=== PATIENT | female | born 1940 | race Caucasian/White ===

== ENCOUNTER 2017-07-24 18:01 | Inpatient (IN) | payer MEDICARE, MEDICAID ==
[~2017-07-24] VITALS: Ht 160 cm; Wt 57.0 kg
[2017-07-24 18:35] LABS: BASOPHILS % (AUTO) 0.3 % (0-1); EOSINOPHILS # (AUTO) 0.1 X10'3 (0-0.9); EOSINOPHILS % (AUTO) 2.4 % (0-6); HEMATOCRIT 33.1 % (35.0-45.0); HEMOGLOBIN 11.2 g/dl (12.0-16.0); LYMPHOCYTES # (AUTO) 1.3 X10'3 (1.1-4.8); LYMPHOCYTES % (AUTO) 20.3 % (21-51); MEAN CORPUSCULAR HEMOGLOBIN 30.5 PG (27.0-31.0); MEAN CORPUSCULAR HGB CONC 33.8 % (33.0-36.5); MEAN CORPUSCULAR VOLUME 90.2 FL (78-98); MEAN PLATELET VOLUME 6.8 FL (7.4-10.4); MONOCYTES # (AUTO) 0.8 X10'3 (0-0.9); MONOCYTES % (AUTO) 12.4 % (2-12); NEUTROPHILS % (AUTO) 64.6 % (42-75); PLATELET COUNT 265 X10'3 (140-440); RED BLOOD COUNT 3.68 X10'6 (4.20-5.60); RED CELL DISTRIBUTION WIDTH 14.1 % (11.5-14.5); WHITE BLOOD COUNT 6.2 X10'3 (4.5-11.0)
[2017-07-24 18:56] LABS: ALANINE AMINOTRANSFERASE 16 U/L (12-78); ALBUMIN 3.2 G/DL (3.4-5.0); ALBUMIN/GLOBULIN RATIO 0.6 (1.1-1.5); ALKALINE PHOSPHATASE 85 IU/L (46-116); ANION GAP 5 (8-16); ASPARTATE AMINO TRANSFERASE 19 U/L (10-37); BILIRUBIN,TOTAL 0.4 MG/DL (0.1-1.0); BLOOD UREA NITROGEN 35 MG/DL (7-18); CALCIUM 9.3 MG/DL (8.5-10.1); CHLORIDE 96 MMOL/L (99-107); CREATININE 1.03 MG/DL (0.40-0.90); GLUCOSE 105 MG/DL (70-104); PARTIAL THROMBOPLASTIN TIME 26 SECONDS (22-32); POTASSIUM 4.3 MMOL/L (3.5-5.1); PROTHROMBIN TIME 10.1 SECONDS (9.0-12.0); SODIUM 134 MMOL/L (135-145); TOTAL PROTEIN 8.5 G/DL (6.4-8.2); eGFR 52 ML/MIN
[2017-07-24] MEDS ORDERED: morphine 4 MG/ML inj SYRINge IV ONE (19:50)
[2017-07-24] MEDS ORDERED: ondansetron/PF 4mg/2ml inj IV ONE (19:50)
[2017-07-24] MEDS ORDERED: aspirin 81mg tab.chew PO ONE (20:00)
[2017-07-24] MEDS ORDERED: nitroGLYCERIN 0.4mg SUBLingual tab SL PRN (20:05)
[2017-07-24] MEDS ORDERED: ipratropium/albuterol 3ml nebule NEB ONE (20:05)
[2017-07-25] VITALS (14 sets, daily range): BP systolic 103–138; BP diastolic 45–85
[2017-07-25] MEDS ORDERED: methylPREDNISolone sod succ 125mg/2ml vial IV ONE (00:20)
[2017-07-25] MEDS ORDERED: magnesium 4gm in 100ml NS 100 ML IV PRN (01:15)
[2017-07-25] MEDS ORDERED: magnesium 2GM in 50ml NS 50 ML IV PRN (01:15)
[2017-07-25] MEDS ORDERED: aminophylline 250mg/10ml inj. IV PRN (01:15)
[2017-07-25] MEDS ORDERED: potassium Cl 20 mEq SR tablet PO PRN ×2 (01:15)
[2017-07-25] MEDS ORDERED: metoprolol tartrate 1mg/ml inj IV PRN (01:15)
[2017-07-25] MEDS ORDERED: nitroGLYCERIN 0.4mg SUBLingual tab SL PRN (01:15)
[2017-07-25] MEDS ORDERED: ondansetron/PF 4mg/2ml inj IV PRN (01:15)
[2017-07-25] MEDS ORDERED: morphine 4 MG/ML inj SYRINge IV PRN ×2 (01:15)
[2017-07-25] MEDS ORDERED: acetaminophen 325mg tablet PO PRN (01:15)
[2017-07-25] MEDS ORDERED: magnesium hydroxide 30ml (MOM) UD suspension PO PRN (01:15)
[2017-07-25] MEDS ORDERED: regadenoson 0.4mg/5ml syringe IV ONE ×3 (01:15→12:00)
[2017-07-25] MEDS ORDERED: magnesium Cl slow-release 64mg tablet PO PRN (01:15)
[2017-07-25] MEDS ORDERED: mag hydrox/Alum hydrox/simeth 30ml oral suspension PO PRN (01:15)
[2017-07-25] MEDS ORDERED: potassium Cl 40MEQ/NS 500ml 500 ML IV PRN ×2 (01:15)
[2017-07-25] MEDS ORDERED: temazepam 15mg capsule PO PRN (01:36)
[2017-07-25] MEDS ORDERED: normal saline 1000ml 1,000 ML IV SCH (01:38)
[2017-07-25] MEDS ORDERED: LORA0.5T (02:07)
[2017-07-25] MEDS ORDERED: CITA40TA17 (02:07)
[2017-07-25] MEDS ORDERED: ZOLP10TA5 (02:07)
[2017-07-25] MEDS ORDERED: FLUT1BLS3 (02:07)
[2017-07-25] MEDS ORDERED: TIOT18CA3 ×2 (02:07→11:28)
[2017-07-25] MEDS ORDERED: TRAZ-143 (02:07)
[2017-07-25] MEDS ORDERED: PRAV10TA39 (02:07)
[2017-07-25] MEDS: levoFLOXACIN-Levaquin 500mg/D5 100 ML IV SCH ×2 (02:21→21:34)
[2017-07-25] MEDS: enoxaparin 60mg/0.6ml syringe SUBCUT SCH ×2 (03:34→20:05)
[2017-07-25] MEDS: K and/or MAG REPLACEMENT MC SCH (08:00)
[2017-07-25] MEDS ORDERED: LORA0.5T PO ×2 (11:22→11:31)
[2017-07-25] MEDS ORDERED: aminophylline inj. 10 ML IV ONE (11:25)
[2017-07-25] MEDS ORDERED: FLUT1DIS4 INH (11:28)
[2017-07-25] MEDS ORDERED: CITA20TA11 PO (11:28)
[2017-07-25] MEDS ORDERED: OMEP40CA37 PO (11:28)
[2017-07-25] MEDS ORDERED: ALB0.5UD IH (11:31)
[2017-07-25] MEDS ORDERED: SIMV20TA5 PO (11:31)
[2017-07-25] MEDS ORDERED: ZOLP5TAB8 PO (11:31)
[2017-07-25] MEDS: LORazepam 1 MG tablet PO PRN ×2 (11:51→20:05)
[2017-07-25] MEDS ORDERED: albuterol 2.5 MG/3 ML nebule NEB PRN (13:15)
[2017-07-25] MEDS ORDERED: zolpidem 5mg tablet PO PRN (13:15)
[2017-07-25] MEDS ORDERED: LORazepam 0.5 MG tablet PO PRN (13:15)
[2017-07-25 14:21] LABS: BASOPHILS % (AUTO) 0.2 % (0-1); EOSINOPHILS % (AUTO) 0.9 % (0-6); HEMOGLOBIN 11.4 g/dl (12.0-16.0); LYMPHOCYTES # (AUTO) 0.7 X10'3 (1.1-4.8); LYMPHOCYTES % (AUTO) 14.6 % (21-51); MEAN CORPUSCULAR HEMOGLOBIN 30.4 PG (27.0-31.0); MEAN CORPUSCULAR HGB CONC 33.5 % (33.0-36.5); MEAN CORPUSCULAR VOLUME 90.7 FL (78-98); MEAN PLATELET VOLUME 7.9 FL (7.4-10.4); MONOCYTES # (AUTO) 0.1 X10'3 (0-0.9); MONOCYTES % (AUTO) 1.6 % (2-12); NEUTROPHILS # (AUTO) 4.1 X10'3 (1.8-7.7); NEUTROPHILS % (AUTO) 82.7 % (42-75); PLATELET COUNT 279 X10'3 (140-440); RED BLOOD COUNT 3.74 X10'6 (4.20-5.60); RED CELL DISTRIBUTION WIDTH 14.9 % (11.5-14.5)
[2017-07-25 14:54] LABS: ALANINE AMINOTRANSFERASE 21 U/L (12-78); ALBUMIN 3.4 G/DL (3.4-5.0); ALBUMIN/GLOBULIN RATIO 0.6 (1.1-1.5); ALKALINE PHOSPHATASE 87 IU/L (46-116); ANION GAP 10 (8-16); ASPARTATE AMINO TRANSFERASE 34 U/L (10-37); BILIRUBIN,TOTAL 0.5 MG/DL (0.1-1.0); BLOOD UREA NITROGEN 43 MG/DL (7-18); BUN/CREATININE RATIO 32.6 (6.6-38.0); CALCIUM 9.1 MG/DL (8.5-10.1); CHLORIDE 96 MMOL/L (99-107); CREATININE 1.32 MG/DL (0.40-0.90); POTASSIUM 4.6 MMOL/L (3.5-5.1); SODIUM 134 MMOL/L (135-145); TOTAL CARBON DIOXIDE 27.7 MMOL/L (24-32); TOTAL PROTEIN 9.1 G/DL (6.4-8.2); eGFR 39 ML/MIN
[2017-07-25 14:55] LABS: GLUCOSE 134 MG/DL (70-104)
[2017-07-25] MEDS ORDERED: fluticasone/vilanterol 200mcg/25mcg inhaler IH SCH (20:00)
[2017-07-26 03:00] VITALS: BP 129/48
[2017-07-26 06:08] LABS: ALBUMIN 3.2 G/DL (3.4-5.0); ALBUMIN/GLOBULIN RATIO 0.6 (1.1-1.5); ANION GAP 7 (8-16); ASPARTATE AMINO TRANSFERASE 60 U/L (10-37); BILIRUBIN,TOTAL 0.5 MG/DL (0.1-1.0); BLOOD UREA NITROGEN 42 MG/DL (7-18); BUN/CREATININE RATIO 35.6 (6.6-38.0); CALCIUM 8.8 MG/DL (8.5-10.1); CHLORIDE 99 MMOL/L (99-107); CREATININE 1.18 MG/DL (0.40-0.90); GLUCOSE 107 MG/DL (70-104); MAGNESIUM 1.8 MG/DL (1.5-2.4); POTASSIUM 4.1 MMOL/L (3.5-5.1); SODIUM 136 MMOL/L (135-145); TOTAL CARBON DIOXIDE 29.8 MMOL/L (24-32); TOTAL PROTEIN 8.3 G/DL (6.4-8.2); eGFR 45 ML/MIN
[2017-07-26 06:09] LABS: ALANINE AMINOTRANSFERASE 27 U/L (12-78); ALKALINE PHOSPHATASE 77 IU/L (46-116); CHOLESTEROL 228 MG/DL (0-200); HDL CHOLESTEROL 57 MG/DL (35-60); LDL CHOLESTEROL 152 MG/DL (50-100); TRIGLYCERIDES 99 MG/DL (20-135)
[2017-07-26 07:00] VITALS: BP 104/51
[2017-07-26] MEDS: enoxaparin 60mg/0.6ml syringe SUBCUT SCH (07:54)
[2017-07-26] MEDS ORDERED: atorvastatin 10mg tablet PO SCH (08:00)
[2017-07-26] MEDS ORDERED: citalopram 20mg tablet PO SCH (08:00)
[2017-07-26] MEDS ORDERED: pantoprazole 40mg Tablet.DR PO SCH (08:00)
[2017-07-26] MEDS ORDERED: predniSONE 20 mg tablet PO SCH (08:00)
[2017-07-26] MEDS: K and/or MAG REPLACEMENT MC SCH (08:00)
[2017-07-26 11:00] VITALS: BP 124/48
[2017-07-26] MEDS ORDERED: ACYC-202 PO (11:27)
[2017-07-26] MEDS ORDERED: METH4TAB81 PO (11:27)
[2017-07-26] MEDS ORDERED: LEVO500T2 PO (11:27)
== END 2017-07-26 12:45 | disposition home or self-care (01) | DRG 189 ==
LOC: ER 18:01 → ED HOLD 07-25 01:12 → PCU 3S 07-25 08:20
PROVIDERS: ADMIT Internal Medicine; ATTEND Internal Medicine
PROC: 4A02XM4 Measurement of Cardiac Total Activity, External Approach (ICD-10-PCS; principal; 2017-07-25)
PROC: 3E033HZ Introduction of Radioactive Substance into Peripheral Vein, Percutaneous Approach (ICD-10-PCS; 2017-07-25)
DX: J96.91 Respiratory failure, unspecified with hypoxia (principal); I50.22 Chronic systolic (congestive) heart failure; E87.1 Hypo-osmolality and hyponatremia; Z99.81 Dependence on supplemental oxygen; J44.1 Chronic obstructive pulmonary disease with (acute) exacerbation; R07.89 Other chest pain; D64.9 Anemia, unspecified; E86.0 Dehydration; N28.9 Disorder of kidney and ureter, unspecified; M19.90 Unspecified osteoarthritis, unspecified site; Z90.710 Acquired absence of both cervix and uterus; Z88.5 Allergy status to narcotic agent; Z79.899 Other long term (current) drug therapy; Z87.891 Personal history of nicotine dependence
CPT/HCPCS: 36415; 71045; 78452; 80053; 80061; 83605; 83735; 83880; 84145; 84484; 85025; 85610; 85730; 87070; 93005; 93017; 93306; 94640; 94760; 96374; 96375; 99285; A9500; J0280; J1650; J1956; J2270; J2405; J2930; J7030; J7512